=== PATIENT | female | born 1955 | race Caucasian/White ===

== ENCOUNTER 2019-04-07 05:50 | Day surgery (SDC) | payer OTHER ==
[2019-04-03 14:47] VITALS: BMI 28.5
--- NOTE | 2019-04-06 09:52 | HP ---
Admitting History and Physical - Primary Care Physician PCP: Kendall Martin - Admission Chief Complaint: Right breast cancer History of Present Illness: Patient is a 63 yo female who was noted to have a right breast suspicious lesion at the 9 oclock position. The patient underwent a right breast US guided core bx on 02/26 which was c/w infiltrating ductal ca ER/SC pos and Her2 neg. Patient had an MRI done which was c/w known cancer without evidence of multifocal or contralateral dz. Patient is now presenting for right breast WE with NL, snbx with lympho. History Source: Patient Limitations to Obtaining History: No Limitations - Past Medical History Cardiovascular: Yes: HTN, Hyperlipdemia - Smoking History Smoking history: Former smoker Have you smoked in the past 12 months: Yes Aproximately how many cigarettes per day: 3 If you are a former smoker, when did you quit?: 02/19 - Alcohol/Substance Use Hx Alcohol Use: No Home Medications - Allergies Allergies/Adverse Reactions: Allergies Allergy/AdvReac Type Severity Reaction Status Date / Time No Known Allergies Allergy Verified 04/03/19 14:38 - Home Medications Home Medications: Ambulatory Orders Atorvastatin Ca [Lipitor] 40 mg PO HS 04/03/19 Metformin HCl [Glucophage] 500 mg PO DAILY 04/03/19 Valsartan [Diovan] 60 mg PO DAILY 04/03/19 Family Medical History Family Hx Cancer: Father (lung cancer) Review of Systems - Review of Systems Constitutional: reports: No Symptoms Cardiovascular: reports: No Symptoms Breasts: reports: No Symptoms Reported Physical Examination Constitutional: Yes: Well Nourished Cardiovascular: Yes: WNL Respiratory: Yes: WNL Breast(s): Yes: Other (Breasts are symmetrical without suspicious masses or adenopathy noted bilaterally. No skin changes or nipple discharge noted) Problem List - Problems (1) Breast cancer, right Code(s): C50.911 - MALIGNANT NEOPLASM OF UNSP SITE OF RIGHT FEMALE BREAST Qualifiers: Breast location: overlapping sites of breast Estrogen receptor status: positive Patient sex: female Qualified Code(s): C50.811 - Malignant neoplasm of overlapping sites of right female breast; Z17.0 - Estrogen receptor positive status [ER+] Assessment/Plan Right breast WE with NL, snbx possible andx and lymphoscintogram
[2019-04-07] MEDS ORDERED: PROPOFOL 20 ML ONE ×2 (10:42)
[2019-04-07] MEDS ORDERED: MIDAZOLAM HCL 2 MG/2 ML SINGLE DOSE VIAL ONE (10:42)
[2019-04-07] MEDS ORDERED: DEXAMETHASONE SOD PHOSPHATE 4 MG/1 ML VIAL ONE (10:42)
[2019-04-07] MEDS ORDERED: ONDANSETRON 4 MG/2 ML VIAL ONE (10:42)
[2019-04-07] MEDS ORDERED: ISOSULFAN BLUE 10 MG/ML VIAL SQ ONE (11:47)
[2019-04-07] MEDS ORDERED: ceFAZolin SODIUM 1 GM VIAL ONE (13:01)
[2019-04-07] MEDS ORDERED: GUM MASTIC/STORAX/MSAL/ALCOHOL 1 DRP DROPSBTL MC ONE (13:05)
[2019-04-07] MEDS ORDERED: KETOROLAC TROMETHAMINE 30 MG/1 ML VIAL IVPUSH PRN (13:30)
[2019-04-07] MEDS ORDERED: DEXTROSE 5%-0.45% SALINE 1,000 ML IV SCH (13:30)
[2019-04-07] MEDS ORDERED: ONDANSETRON 4 MG/2 ML VIAL IVPUSH PRN ×2 (13:30→14:18)
[2019-04-07] MEDS ORDERED: oxyCODONE HCL 5 MG TABLET PO PRN ×2 (14:18)
[2019-04-07 14:22] VITALS: TEMP 98.6
[2019-04-07] MEDS ORDERED: LACTATED RINGERS SOLUTION 1,000 ML IV SCH (14:30)
[2019-04-07 14:48] VITALS: PULSE 70
[2019-04-07 15:34] VITALS: BP 134/76
--- NOTE | 2019-04-07 20:57 | OP ---
DATE OF OPERATION: 04/07/2019 PREOPERATIVE DIAGNOSIS: Right breast cancer. POSTOPERATIVE DIAGNOSIS: Right breast cancer. PROCEDURE: Right mammographically localized partial mastectomy with right axillary sentinel node biopsy. ANESTHESIA: General intubated. ATTENDING SURGEON: Kendall Martin MD ENGINE[employer] INTER[employer]: [employer] [place] ESTIMATED BLOOD LOSS: Minimal. COMPLICATIONS: None. DESCRIPTION OF PROCEDURE: Patient was made aware of the risks and benefits of the procedure and consented. Preoperatively, she went to the radiology suite where needle and wire were placed next to the index lesion, and then, to nuclear medicine where radioactive tracer was injected into the skin. She was then placed in supine position on the operating room table, and after general anesthesia was induced, the patient was intubated. Next, 3 mL of 1% isosulfan blue were locally infiltrated into the subareolar tissue. The operative site was then prepped and draped in usual sterile fashion. After 10 minutes with gentle manual compression, a curvilinear incision was made in the right axilla. Using blunt and sharp dissection, tissues were dissected down where a cluster of hot lymph nodes was identified, surgically excised, and submitted to Pathology. No blue dye was seen. Palpation of the axilla revealed no suspicious lymph nodes or other hot spots. The wound was copiously irrigated with normal saline. Hemostasis maintained by electrocautery. The wound was then closed with deep 3-0 Vicryl, followed by running subcuticular 4-0 Monocryl. The breast was then approached. A curvilinear incision was made next to the wire using electrocautery. Tissues were dissected down to the wire, and the needle was drawn into the puncture site and the wire into the wound. Tissues around the wire were then sharply excised and submitted with a short suture superior, long suture lateral. Specimen radiographs confirmed the presence of the index lesion. The specimen was then submitted for permanent sectioning. Additional segments were taken deep anterior, medial, lateral, superior, and inferior with clips at the new margin. The wound was copiously irrigated with normal saline. Hemostasis maintained by electrocautery. The skin and wound were then injected with 0.5% bupivacaine. The tissue was then closed with deep 2-0 Vicryl, followed by subdermal interrupted 3-0 Vicryl, followed by running subcuticular 4-0 Monocryl. Steri-Strips, sterile dressing, and a compression bra were then applied, and the patient, having tolerated the procedure well, was transferred to the recovery room in excellent condition. Kareem [id number]
--- NOTE | 2019-04-10 15:02 | PATH ---
Surgical Pathology Report Patient Name: RANDY RODRIGUEZ [facility]. Rec. #: [id number] /Age/Gender: 1955 (Age: 63) / F Account: [id number] Location: [facility] Taken: 04/07/2019 Received: 04/07/2019 Reported: 04/10/2019 Physicians: Kendall Martin M.D. Specimen(s) Received A: RIGHT AXILLARY SENTINEL LYMPH NODES B: RIGHT BREAST WIDE EXCISION C: RIGHT BREAST LATERAL MARGIN D: RIGHT BREAST MEDIAL MARGIN E: RIGHT BREAST INFERIOR MARGIN F: RIGHT BREAST SUPERIOR MARGIN G: RIGHT BREAST POSTERIOR MARGIN H: RIGHT BREAST ANTERIOR MARGIN Clinical History Invasive Ca right breast Final Diagnosis A. lymph nodes, right axillary sentinel, excision: Three lymph nodes, negative for metastatic carcinoma (0/3). B. breast, right, wide excision: Invasive ductal carcinoma with lobular growth features (tubule score: 3/3, nuclear grade: 2/3, mitotic score: 1/3; total score: 6/9, [place] grade 2). (See note) Invasive carcinoma measures 1.8 cm in greatest dimension, microscopically. Invasive Carcinoma extends to the superior margin and is focally close to (< 1 mm) the inferior MARGIN. see specimens C-H for final margins. No lymphovascular invasion is identified. Prior biopsy site changes are present. Pathologic stage (pTNM): pT1c pN0. see also invasive carcinoma case Summary below. Note: The carcinoma shows strong membranous positivity for E-cadherin (performed at [facility]) which supports ductal phenotype. C. breast, right, lateral margin, excision: Benign breast tissue. D. breast, right, medial margin, excision: Benign breast tissue. E. Breast, right, inferior margin, excision: Benign breast tissue. F. breast, right, superior margin, excision: Benign breast tissue. G. Breast, right, posterior margin, excision: Benign breast tissue. H. breast, right, anterior margin, excision: Benign breast tissue. Comments Breast Invasive Carcinoma: Surgical Pathology Case Summary (Based on AJCC TNM 8 th edition) Procedure _X_ Excision (less than total mastectomy) Specimen Laterality _X_ Right Tumor Size _X_ Greatest dimension of largest invasive focus >1 mm (millimeters): 18 mm Histologic Type _X_ Invasive carcinoma with lobular features Histologic Grade (Josias Histologic Score) Glandular (Acinar)/Tubular Differentiation _X_ Score 3 (<10% of tumor area forming glandular/tubular structures) Nuclear Pleomorphism _X_ Score 2 Mitotic Rate _X_ Score 1 Overall Grade _X_ Grade 2 (scores of 6 or 7) Tumor Focality _X_ Single focus of invasive carcinoma Ductal Carcinoma In Situ (DCIS) _X_ No DCIS in specimen Margins Invasive Carcinoma Margins _X_ Uninvolved by invasive carcinoma Distance from closest margin (millimeters): _X_ Cannot be determined: Invasive carcinoma extends to the superior margin and is focally < 1 mm from the inferior margin in wide excision B. Final superior (F) and inferior (E) margins are negative for carcinoma. Regional Lymph Nodes _X_ Uninvolved by tumor cells Number of Lymph Nodes Examined: 3 Number of [place] Nodes Examined: 3 Treatment Effect _X_ No known presurgical therapy Lymphovascular Invasion _X_ Not identified Pathologic Stage Classification (pTNM, AJCC 8th Edition) Primary Tumor (Invasive Carcinoma) (pT) _X_ pT1c: Tumor >10 mm but =20 mm in greatest dimension Regional Lymph Nodes (pN) Category (pN) _X_ pN0: No regional lymph node metastasis identified or ITCs only Biomarker Studies Results of ER and NH studies performed on this specimen (block B5) at [facility] are as follows: ER (clone [id number] mouse monoclonal antibody by [employer]): > 95 % nuclear staining with strong intensity (positive). NH (clone16 mouse monoclonal antibody by [employer]): > 95 % nuclear staining with strong intensity (positive). Results of Her2 (IHC) & Ki-67 studies performed on this specimen (block B5) at [place], [place] ([id number]) are as follows: Her2 IHC (EP3 from [employer], formerly known as [id number], using [employer] Polymer Refine detection kit): 0 (negative). Ki67: ~10% (low proliferative index). Positive and negative controls (internal if applicable) show appropriate results. Formalin fixation and cold ischemic times are within current ASCO/CAP recommendations for ER, NH and Her2 testing. Electronically Signed Sharon Clarke M.D. Gross Description A. Received in formalin labeled "right axillary sentinel lymph nodes," are 3 lymph nodes with attached fat ranging from 0.7 x 0.5 x 0.3 cm to 2.0 x 1.5 x 0.6 cm. The lymph nodes are entirely submitted in 3 cassettes as follows: 1- two whole lymph nodes; 2, 3 -one bisected lymph node. B. Received in formalin, labeled "right breast wide excision," is a 3.8 x 3.2 x 1.7 cm. davey-yellow, irregular, portion of fibroadipose tissue with a needle localization wire present. There is a needle localization wire and biopsy clip identified on the radiograph. There is a short suture marking the superior aspect and a long suture marking the lateral aspect, per the surgeon. There is no skin present. The specimen is inked as follows: Superior blue; inferior green; anterior and lateral red; medial yellow; posterior black. The specimen is serially sectioned from lateral to medial. Sectioning reveals a 1.3 x 1.0 x 0.7 cm indurated, ill-defined mass containing a ring-shaped metallic biopsy clip. The mass is focally at 0.2 cm from the superior margin and 0.3 cm from the inferior margin. The specimen is entirely and sequentially submitted in 9 cassettes with the lateral margin cassette 1 and the medial margin in cassette 9 (mass/clip in cassettes 3-5). Time to formalin fixation: 25 minutes Total formalin fixation time: Approximately 30 hours. C. Received in formalin labeled "right breast lateral margin," is a 2.0 x 1.6 x 0.3 cm portion of fibroadipose tissue with a clip marking the new margin, per the surgeon. The new margin is inked black and the specimen is serially sectioned. The specimen is entirely submitted in 2 cassettes. D. Received in formalin labeled "right breast medial margin," is a 2.4 x 1.6 x 0.6 cm portion of fibroadipose tissue with a clip marking the new margin, per the surgeon. The new margin is inked black and the specimen is serially sectioned. The specimen is entirely submitted in 3 cassettes. E. Received in formalin labeled "right breast inferior margin," is a 2.7 x 1.7 x 0.6 cm portion of fibroadipose tissue with a clip marking the new margin, per the surgeon. The new margin is inked black and the specimen is serially sectioned. The specimen is entirely submitted in 3 cassettes. F. Received in formalin labeled "right breast superior margin," is a 1.8 x 1.5 x 0.5 cm portion of fibroadipose tissue with a clip marking the new margin, per the surgeon. The new margin is inked black and the specimen is serially sectioned. The specimen is entirely submitted in 2 cassettes. G. Received in formalin labeled "right breast posterior margin," is a 3.4 x 2.5 x 1.1 cm portion of fibroadipose tissue with a clip marking the new margin, per the surgeon. The new margin is inked black and the specimen is serially sectioned. The specimen is entirely and sequentially submitted in 4 cassettes. H. Received in formalin labeled "right breast anterior margin," is a 2.0 x 1.7 x 0.8 cm portion of fibroadipose tissue with a clip marking the new margin, per the surgeon. The new margin is inked black and the specimen is serially sectioned. The specimen is entirely submitted in 2 cassettes. 04/08/2019 [facility]04/08/2019
== END 2019-04-07 15:25 | disposition home or self-care (01) ==
LOC: FASU 05:50
PROVIDERS: ATTEND Surgery Surgical Oncology
PROC: 0HBT0ZZ Excision of Right Breast, Open Approach (ICD-10-PCS; principal; 2019-04-07 12:26)
DX: C50.811 Malignant neoplasm of overlapping sites of right female breast (principal); Z17.0 Estrogen receptor positive status [ER+]; I10 Essential (primary) hypertension; E78.5 Hyperlipidemia, unspecified; Z87.891 Personal history of nicotine dependence
CPT/HCPCS: 19281; 76098-TC-FY; 78195-TC; 82962; 88307-TC; 88342-TC; 94760; A9541